=== PATIENT | male | born 1940 | race Caucasian/White ===

== ENCOUNTER 2021-01-10 11:39 | Emergency (ER) | payer MEDICARE ==
[~2021-01-10] VITALS: Ht 172.7 cm; Wt 85.3 kg
[2021-01-10 13:26] LABS: HEMOGLOBIN 13.4 gm/dl (14.0-17.5); RED BLOOD COUNT 3.82 M/UL (4.20-5.50)
[2021-01-10 13:55] LABS: BUN/CREATININE RATIO 21 (0-10)
== END 2021-01-10 16:02 | disposition home or self-care (01) ==
LOC: ER1 11:39
PROVIDERS: Physician Assistant
DX: Z23 Encounter for immunization (principal); U07.1 COVID-19; J12.82 Pneumonia due to coronavirus disease 2019; E87.6 Hypokalemia
CPT/HCPCS: 36600; 71045; 80053; 82550; 82553; 82803; 83874; 84484; 85025; 93005; 93971; 94664; 99285; M0243

== ENCOUNTER 2021-01-11 04:39 | Emergency (ER) | payer MEDICARE | END 2021-01-11 05:40 | disposition home or self-care (01) | LOC: ER1 04:39 | DX: U07.1 COVID-19 (principal); I10 Essential (primary) hypertension | CPT/HCPCS: 99284 ==

== ENCOUNTER → 2021-04-10 | Outpatient (CLI) | payer MEDICARE | LOC: US 10:00 → ECHO 10:15 → US 11:00 | DX: I48.0 Paroxysmal atrial fibrillation (principal); I65.23 Occlusion and stenosis of bilateral carotid arteries; I08.8 Other rheumatic multiple valve diseases; I27.20 Pulmonary hypertension, unspecified | CPT/HCPCS: ECHO; 93306; 93880 ==

== ENCOUNTER 2021-05-11 18:36 | Emergency (ER) | payer MEDICARE ==
[2021-05-11 20:51] LABS: HEMOGLOBIN 13.3 gm/dl (14.0-17.5); RED BLOOD COUNT 3.85 M/UL (4.20-5.50); WHITE BLOOD COUNT 15.5 K/UL (4.5-11.0)
[2021-05-11 21:11] LABS: BUN/CREATININE RATIO 27 (0-10)
[2021-05-11] MEDS ORDERED: PROVENTIL HFA6.7 GM INH (21:33)
[2021-05-11] MEDS ORDERED: ATROVENT HFA12.9 GM INH (21:33)
== END 2021-05-11 21:58 | disposition home or self-care (01) ==
LOC: ER1 18:36
PROVIDERS: Student in an Organized Health Care Education/Training Program
DX: J44.1 Chronic obstructive pulmonary disease with (acute) exacerbation (principal); I10 Essential (primary) hypertension; E78.5 Hyperlipidemia, unspecified; Z87.891 Personal history of nicotine dependence
CPT/HCPCS: 80053; 82550; 82553; 83874; 84484; 85025; 93005; 94664; 99285

== ENCOUNTER 2021-05-13 06:50 | Emergency (ER) | payer MEDICARE ==
[~2021-05-13 06:50] MED LIST: ATROVENT HFA12.9 GM INH; PROVENTIL HFA6.7 GM INH
[2021-05-13 08:47] LABS: HEMOGLOBIN 13.7 gm/dl (14.0-17.5); RED BLOOD COUNT 3.98 M/UL (4.20-5.50); WHITE BLOOD COUNT 18.4 K/UL (4.5-11.0)
[2021-05-13 09:16] LABS: BUN/CREATININE RATIO 21 (0-10)
[2021-05-13] MEDS ORDERED: AUGMENTIN 875-1 EACH PO (12:25)
[2021-05-13] MEDS ORDERED: ZITHROMAX250 MG PO (12:25)
== END 2021-05-13 13:14 | disposition home or self-care (01) ==
LOC: ER1 06:50
PROVIDERS: Physician Assistant
DX: J18.9 Pneumonia, unspecified organism (principal); J44.9 Chronic obstructive pulmonary disease, unspecified; I10 Essential (primary) hypertension; Z20.822 Contact with and (suspected) exposure to COVID-19
CPT/HCPCS: 71045; 80053; 82550; 82553; 83874; 84484; 85025; 93005; 96374; 99284; J0696; Q9967; U0002

== ENCOUNTER → 2021-05-29 | Outpatient (CLI) | payer MEDICARE ==
[~2021-05-29] MED LIST changes: +AUGMENTIN 875-1 EACH PO; +ZITHROMAX250 MG PO
== END ==
LOC: KOH-I 15:01
DX: R06.02 Shortness of breath (principal); R91.8 Other nonspecific abnormal finding of lung field; J90 Pleural effusion, not elsewhere classified
CPT/HCPCS: 71046

== ENCOUNTER → 2021-05-31 | Outpatient (CLI) | payer MEDICARE ==
[~2021-05-31] MED LIST changes: +AZITHROMYCIN250 MG PO; +LASIX20 MG PO
== END ==
LOC: HEART 5 15:06
DX: J44.9 Chronic obstructive pulmonary disease, unspecified (principal)
CPT/HCPCS: 94060; 94729

== ENCOUNTER 2021-06-01 04:36 | Emergency (ER) | payer MEDICARE ==
[~2021-06-01 04:36] MED LIST changes: -AZITHROMYCIN250 MG PO; -LASIX20 MG PO
[2021-06-01 05:10] LABS: HEMOGLOBIN 13.1 gm/dl (14.0-17.5); RED BLOOD COUNT 3.86 M/UL (4.20-5.50); WHITE BLOOD COUNT 9.7 K/UL (4.5-11.0)
[2021-06-01 05:42] LABS: BUN/CREATININE RATIO 20 (0-10)
[2021-06-01] MEDS ORDERED: AZITHROMYCIN250 MG PO (09:59)
[2021-06-01] MEDS ORDERED: LASIX20 MG PO (09:59)
== END 2021-06-01 10:35 | disposition home or self-care (01) ==
LOC: ER1 04:36
PROVIDERS: Emergency Medicine
DX: I11.0 Hypertensive heart disease with heart failure (principal); I50.9 Heart failure, unspecified; J44.9 Chronic obstructive pulmonary disease, unspecified; F17.200 Nicotine dependence, unspecified, uncomplicated; Z20.822 Contact with and (suspected) exposure to COVID-19
CPT/HCPCS: 71045; 80048; 82550; 82553; 83605; 83874; 83880; 84484; 85025; 87040; 93005; 93971; 94664; 94760; 96374; 96375; 99285; J1940; J2930; Q9967; U0002

== ENCOUNTER → 2021-07-12 | Outpatient (CLI) | payer MEDICARE ==
[~2021-07-12] MED LIST changes: +AZITHROMYCIN250 MG PO; +LASIX20 MG PO
== END ==
LOC: KOH-I 12:16
DX: I50.9 Heart failure, unspecified (principal); R91.8 Other nonspecific abnormal finding of lung field; J90 Pleural effusion, not elsewhere classified; J98.11 Atelectasis
CPT/HCPCS: 71046

== ENCOUNTER → 2021-10-24 | Outpatient (CLI) | payer MEDICARE | LOC: HEART 5 11:37 | DX: R06.00 Dyspnea, unspecified (principal); J90 Pleural effusion, not elsewhere classified; R91.8 Other nonspecific abnormal finding of lung field | CPT/HCPCS: 71046; 94060 ==

== ENCOUNTER 2022-01-01 23:52 | Emergency (ER) | payer MEDICARE ==
[2022-01-02 00:42] LABS: HEMOGLOBIN 13.4 gm/dl (14.0-17.5); RED BLOOD COUNT 3.84 M/UL (4.20-5.50); WHITE BLOOD COUNT 11.2 K/UL (4.5-11.0)
[2022-01-02 01:02] LABS: BUN/CREATININE RATIO 30 (0-10)
== END 2022-01-02 02:05 | disposition home or self-care (01) ==
LOC: ER1 23:52
PROVIDERS: Physician Assistant
DX: I11.9 Hypertensive heart disease without heart failure (principal); I10 Essential (primary) hypertension; R00.0 Tachycardia, unspecified; Z95.5 Presence of coronary angioplasty implant and graft; Z79.899 Other long term (current) drug therapy
CPT/HCPCS: 71045; 80053; 82550; 82553; 84484; 85025; 93005; 96361; 96374; 99284

== ENCOUNTER → 2022-01-30 | Outpatient (CLI) | payer MEDICARE ==
[2022-01-30 15:27] LABS: BUN/CREATININE RATIO 25 (0-10)
== END ==
LOC: LAB 14:48
PROVIDERS: Nurse Practitioner Family
DX: E87.1 Hypo-osmolality and hyponatremia (principal); I10 Essential (primary) hypertension
CPT/HCPCS: 36415; 80048

== ENCOUNTER → 2022-02-19 | Outpatient (CLI) | payer MEDICARE | LOC: HEART 5 09:30 | DX: I48.0 Paroxysmal atrial fibrillation (principal); I71.2 Thoracic aortic aneurysm, without rupture; R06.02 Shortness of breath; R53.83 Other fatigue; I27.20 Pulmonary hypertension, unspecified; I08.2 Rheumatic disorders of both aortic and tricuspid valves | CPT/HCPCS: 93306 ==